=== PATIENT | male | born 1990 | race Caucasian/White ===

== ENCOUNTER → 2025-03-04 16:11 | Outpatient (REF) | payer OTHER, SELFPAY | LOC: RAD 16:11 | PROVIDERS: ATTENDING PHYSICIAN Internal Medicine; FAMILY PHYSICIAN Physician Assistant | DX: C62.92 Malignant neoplasm of left testis, unspecified whether descended or undescended (principal) | CPT/HCPCS: 71260; 74177; Q9967 ==